=== PATIENT | female | born 1960 | race Caucasian/White ===

== ENCOUNTER 2023-04-27 12:22 | Emergency (ER) | payer BC, SELFPAY ==
[2023-04-27] VITALS (15 sets, daily range): BP systolic 133–174; BP diastolic 88–106; PULSE 73–108; RESP 12–21; O2SAT 95–98; BMI 34.5
--- NOTE | 2023-04-27 12:55 | XR_ITS ---
The [address] [address] Patient Name: JULIO CÉSAR GARCIA MRN: [id number] date: 1960 Sex: F Assigned Patient Location: ER Current Patient Location: ER Accession/Order Number: [id number] Exam Date: 04/27/2023 13:12 Report Date: 04/27/2023 14:41 At the request of: KASIE AHUJA Procedure: XR chest 1V FRONTAL CHEST; 04/27/2023 1:12 PM EST Clinical History:SOB Comparison: None available . AP portable upright film. Osseous structures are grossly intact. Cardiac and mediastinal silhouettes are unremarkable. The ann marie are symmetric. No infiltrate or effusion. No failure pattern. The lungs are well expanded. XR/XR chest 1V IMPRESSION: 1. No infiltrate, effusion, or failure. Electronically authenticated by: ERIC GREENFIELD Date: 04/27/2023 14:41
--- NOTE | 2023-04-27 12:55 | ECG_ITS ---
The [facility] Test Date: 2023-04-27 Pat Name: JULIO CÉSAR GARCIA Department: Room: - Gender: Female Vp Informatics: : 1960 Requested By: KLAUDIA KEBEDE Order Number: [id number] Reading MD: KAYLI OHARA Measurements Intervals [place] Rate: 95 P: 60 DC: 146 QRS: 39 QRSD: 66 T: 48 QT: 314 QTc: 367 Interpretive Statements 1100 Sinus rhythm 8102 Low QRS voltage in chest leads 0102 ARTIFACT PRESENT 9120 atypical ECG No previous ECG available for comparison Electronically Signed On 04-27-2023 19:36:12 EST by KAYLI OHARA
--- NOTE | 2023-04-27 12:55 | ED.SOB1 ---
HPI - SOB/Dyspnea General Chief Complaint: Shortness of Breath/Dyspnea Stated Complaint: Shortness Of Breath Chest Pain Time Seen by Provider: 04/27/23 12:32 Source: patient Mode of arrival: walk-in History of Present Illness HPI Narrative: 63-year-old female presents for shortness breath and chest pain. She's been having these symptoms for about four days. She saw her doctor four days ago but she didn't tell him. She has not had a cough. She hasn't used her inhaler. She hasn't had a fever or hemoptysis. The pain in her chest is been there continuously for about three days and it's in the center. Related Data Home Medications Medication Instructions Recorded Confirmed atogepant 60 mg tablet (Qulipta) 60 mg PO DAILY 04/27/23 04/27/23 fluoxetine 40 mg capsule 40 mg PO DAILY 04/27/23 04/27/23 lisdexamfetamine 30 mg capsule 30 mg PO DAILY 04/27/23 04/27/23 spironolactone 50 mg tablet 50 mg PO DAILY 04/27/23 04/27/23 topiramate 50 mg tablet 150 mg PO .qhs 04/27/23 04/27/23 Allergies Allergy/AdvReac Type Severity Reaction Status Date / Time No Known Drug Allergies Allergy Verified 04/27/23 12:26 Review of Systems ROS Narrative A ten point review of systems is negative except as noted above. PFSH PFSH Social History Smoking status: Former smoker Exam Narrative Exam Narrative: Nurses note and vital signs reviewed and patient is not hypoxic. General: The patient appears well and in no apparent distress. Patient is resting comfortably on cart. Skin: Warm, dry, no pallor noted. There is pallor or erythema. Head: Normocephalic, atraumatic Eye: Normal conjunctiva, no drainage Ears, Nose, Mouth, and Throat: oral mucosa is moist. Nares patent. Cardiovascular: Regular Rate and Rhythm Respiratory: Patient is in no distress, no accessory muscle use, lungs are clear to auscultation, no wheezing, rales or rhonchi Back: non-tender GI: soft and nontender Musculoskeletal: The patient has no evidence of calf tenderness, no pitting edema, symmetrical pulses noted bilaterally Neurological: A&O, normal speech Psychiatric: Cooperative, mildly anxious in appearance Constitutional Vital Signs, click to edit/add: Last Vital Signs Pulse 73 04/27/23 15:30 Resp 14 04/27/23 15:30 BP 150/90 H 04/27/23 15:30 Pulse Ox 98 04/27/23 15:30 Course Vital Signs Vital signs: Vital Signs Pulse Rate 108 H 04/27/23 12:27 Respiratory Rate 18 04/27/23 12:27 Blood Pressure 174/100 H 04/27/23 12:27 Pulse Oximetry 98 04/27/23 12:27 Pulse Rate 73 04/27/23 15:30 Respiratory Rate 14 04/27/23 15:30 Blood Pressure 150/90 H 04/27/23 15:30 Pulse Oximetry 98 04/27/23 15:30 MDM - SOB/Dyspnea MDM Narrative Medical decision making narrative: Workup including CT of the chest is negative other than some emphysematous changes. No evidence of PE or pneumothorax or pneumonia. No evidence of heart disease at this point. She'll be discharged home and will follow-up with her physician. Treatment diagnosis and follow-up were discussed with the patient. Differential Diagnosis Differential diagnosis: Likely acute exacerbation of chronic obstructive airways disease, congestive heart failure, community acquired pneumonia, pulmonary embolism and other (pneumothorax) Lab Data Attestation: I reviewed the patient's lab results. Labs: Lab Results 04/27/23 Range/Units 12:52 WBC 5.5 (4.0-11.0) 10^3/uL RBC 4.82 (4.20-5.40) 10^6/uL Hgb 13.7 (12.0-16.0) g/dL Hct 42.9 (36.0-48.0) % MCV 89.0 (81.0-99.0) fL MCH 28.4 (26.7-34.0) pg MCHC 31.9 (29.9-35.2) g/dL RDW 12.2 (11.0-15.0) % Plt Count 266 (150-450) 10^3/uL MPV 9.4 L (9.5-13.5) fL Neut % (Auto) 70.7 (43.0-75.0) % Lymph % (Auto) 20.4 L (20.5-60.0) % [place] % (Auto) 6.7 (1.7-12.0) % Eos % (Auto) 1.3 (0.9-7.0) % Baso % (Auto) 0.7 (0.2-2.0) % Neut # (Auto) 3.9 (1.4-6.5) 10^3/uL Lymph # (Auto) 1.1 L (1.2-3.8) 10^3/uL [place] # (Auto) 0.4 (0.3-0.8) 10^3/uL Eos # (Auto) 0.1 (0.0-0.7) 10^3/uL Baso # (Auto) 0.0 (0.0-0.1) 10^3/uL Abs Immat Gran (auto) 0.01 (0.00-0.03) 10^3/uL Imm/Tot Granulo (auto) 0.2 (0.0-0.5) % Sodium 138 (136-145) mmol/L Potassium 4.1 (3.5-5.1) mmol/L Chloride 105 (98-107) mmol/L Carbon Dioxide 25.5 (21.0-32.0) mmol/L Anion Gap 11.6 BUN 14.0 (7.0-18.0) mg/dL Creatinine 0.97 (0.55-1.02) mg/dL Est GFR ( Amer) >60 (>=60) Est GFR (Non-Af Amer) 58 L (>=60) BUN/Creatinine Ratio 14.4 Glucose 97 (74-106) mg/dL Calcium 9.0 (8.5-10.1) mg/dL Troponin I High Sens 9.2 (4.0-51.3) pg/mL Imaging Data chest x-ray and CT chest: Radiologist's impression: Procedure: CT angio chest EXAM: CT angio chest HISTORY: sob, r/o PE COMPARISON: None. TECHNIQUE: Thin section transaxial slices were acquired through the chest with intravenous contrast per PE protocol. Coronal and sagittal reconstructed images were reviewed. FINDINGS: PULMONARY ARTERIES: There is good opacification of the pulmonary vasculature. No pulmonary arterial filling defects are present. VASCULATURE: There is mild dilatation of ascending aorta. No atherosclerotic calcification. LUNGS/AIRWAYS: No areas of consolidation or mass are seen. There are upper lobe predominant mild centrilobular emphysematous changes. There are nonspecific mild groundglass opacities in bilateral lung bases, likely represent dependent atelectasis. Bronchial wall thickening are identified in the bilateral lower lobes with mild mosaic attenuation. The central airways are patent. PLEURAL CAVITY: No pleural effusion or pneumothorax. HEART/PERICARDIUM: The heart is normal in size. No pericardial effusion. MEDIASTINAL/HILAR LYMPH NODES: No pathologically enlarged lymph nodes. CHEST WALL/AXILLA/LOWER NECK: Normal. VISUALIZED UPPER ABDOMEN: Unremarkable BONES: No acute process.. Moderate degenerative changes of thoracic spine. IMPRESSION: 1. No evidence of pulmonary embolism. 2. No evidence of pneumonia. 3. Upper lobe predominant mild centrilobular emphysematous changes. Bibasilar dependent atelectasis. Mild bronchial wall thickening in bilateral lower lobes with mild mosaic attenuation, may represent of reactive or viral airway disease. 4. Mild dilatation of ascending aorta. Electronically authenticated by: CHON UNLU Date: 04/27/2023 15:49 Procedure: XR chest 1V FRONTAL CHEST; 04/27/2023 1:12 PM EST Clinical History:SOB Comparison: None available . AP portable upright film. Osseous structures are grossly intact. Cardiac and mediastinal silhouettes are unremarkable. The ann marie are symmetric. No infiltrate or effusion. No failure pattern. The lungs are well expanded. IMPRESSION: 1. No infiltrate, effusion, or failure. Electronically authenticated by: ERIC GREENFIELD Date: 04/27/2023 14:41 ECG Data Attestation: I personally reviewed and interpreted this ECG as follows: (EKG on my interpretation shows atrial fibrillation with a rate of 84.) Discharge Plan Discharge Chief Complaint: Shortness of Breath/Dyspnea Clinical Impression: Dyspnea Patient Disposition: Home, Self-Care Time of Disposition Decision: 16:43 Condition: Good Mode of Transportation: Private Vehicle Prescriptions / Home Meds: No Action Qulipta 60 mg tablet 60 mg PO DAILY lisdexamfetamine 30 mg capsule 30 mg PO DAILY fluoxetine 40 mg capsule 40 mg PO DAILY spironolactone 50 mg tablet 50 mg PO DAILY topiramate 50 mg tablet 150 mg PO .qhs Instructions: Dyspnea (ED) Stand Alone Forms: Portal Instructions Referrals: Physician,Non-Staff, MD [Physician] - 1 week
[2023-04-27 13:16] LABS: Basophils Percent Auto 0.7 % (0.2-2.0); Eosinophils Absolute Auto 0.1 10^3/uL (0.0-0.7); Eosinophils Percent Auto 1.3 % (0.9-7.0); Hematocrit 42.9 % (36.0-48.0); Hemoglobin 13.7 g/dL (12.0-16.0); Immature Granulocytes Abs Auto 0.01 10^3/uL (0.00-0.03); Immature Granulocytes Pct Auto 0.2 % (0.0-0.5); Lymphocytes Absolute Auto 1.1 10^3/uL (1.2-3.8); Lymphocytes Percent Auto 20.4 % (20.5-60.0); Mean Corpuscular HGB Conc 31.9 g/dL (29.9-35.2); Mean Corpuscular Hemoglobin 28.4 pg (26.7-34.0); Mean Platelet Volume 9.4 fL (9.5-13.5); Monocytes Absolute Auto 0.4 10^3/uL (0.3-0.8); Monocytes Percent Auto 6.7 % (1.7-12.0); Neutrophils Absolute Auto 3.9 10^3/uL (1.4-6.5); Neutrophils Percent Auto 70.7 % (43.0-75.0); Platelet Count 266 10^3/uL (150-450); Red Blood Count 4.82 10^6/uL (4.20-5.40); Red Cell Distribution Width 12.2 % (11.0-15.0); White Blood Count 5.5 10^3/uL (4.0-11.0)
[2023-04-27 13:33] LABS: Anion Gap 11.6; BUN Creatinine Ratio 14.4; Carbon Dioxide 25.5 mmol/L (21.0-32.0); Chloride 105 mmol/L (98-107); Estimated GFR (African America >60 (>=60); Estimated GFR (Non-African Ame 58 (>=60); Glucose 97 mg/dL (74-106); Potassium 4.1 mmol/L (3.5-5.1); Sodium 138 mmol/L (136-145); Troponin I High Sensitivity 9.2 pg/mL (4.0-51.3)
--- NOTE | 2023-04-27 14:02 | CT_ITS ---
The [address] [address] Patient Name: JULIO CÉSAR GARCIA MRN: [id number] date: 1960 Sex: F Assigned Patient Location: ER Current Patient Location: ER Accession/Order Number: [id number] Exam Date: 04/27/2023 14:37 Report Date: 04/27/2023 15:49 At the request of: KASIE AHUJA Procedure: CT angio chest EXAM: CT angio chest HISTORY: sob, r/o PE COMPARISON: None. TECHNIQUE: Thin section transaxial slices were acquired through the chest with intravenous contrast per PE protocol. Coronal and sagittal reconstructed images were reviewed. FINDINGS: PULMONARY ARTERIES: There is good opacification of the pulmonary vasculature. No pulmonary arterial filling defects are present. VASCULATURE: There is mild dilatation of ascending aorta. No atherosclerotic calcification. LUNGS/AIRWAYS: No areas of consolidation or mass are seen. There are upper lobe predominant mild centrilobular emphysematous changes. There are nonspecific mild groundglass opacities in bilateral lung bases, likely represent dependent atelectasis. Bronchial wall thickening are identified in the bilateral lower lobes with mild mosaic attenuation. The central airways are patent. PLEURAL CAVITY: No pleural effusion or pneumothorax. HEART/PERICARDIUM: The heart is normal in size. No pericardial effusion. MEDIASTINAL/HILAR LYMPH NODES: No pathologically enlarged lymph nodes. CHEST WALL/AXILLA/LOWER NECK: Normal. VISUALIZED UPPER ABDOMEN: Unremarkable BONES: No acute process.. Moderate degenerative changes of thoracic spine. CT/CT angio chest IMPRESSION: 1. No evidence of pulmonary embolism. 2. No evidence of pneumonia. 3. Upper lobe predominant mild centrilobular emphysematous changes. Bibasilar dependent atelectasis. Mild bronchial wall thickening in bilateral lower lobes with mild mosaic attenuation, may represent of reactive or viral airway disease. 4. Mild dilatation of ascending aorta. Electronically authenticated by: CHON PRESLEYU Date: 04/27/2023 15:49
== END 2023-04-27 16:55 | disposition home or self-care (01) ==
PROVIDERS: Emergency Provider Emergency Medicine; PCP Internal Medicine
DX: R06.00 Dyspnea, unspecified (principal); Z79.899 Other long term (current) drug therapy
CPT/HCPCS: 36415; 71045; 71275; 80048; 84484; 85025; 93005; 99285; Q9967

== ENCOUNTER 2023-05-16 08:30 | Outpatient (OUT) | payer BC, SELFPAY ==
--- NOTE | 2023-05-16 08:33 | CT_ITS ---
[address] [address] Patient Name: JULIO CÉSAR GARCIA MRN: [id number] date: 1960 Sex: F Assigned Patient Location: CT Current Patient Location: Accession/Order Number: [id number] Exam Date: 05/16/2023 08:38 Report Date: 05/18/2023 08:18 At the request of: KLAUDIA KEBEDE Procedure: CT lung screening low-dose EXAM TYPE: CT lung screening low-dose INDICATION: Former smoker COMPARISON: LD CT scan of the chest 11/24/2021, CT angiography of the chest 04/27/2023 TECHNIQUE: Noncontrast, Low dose, helical axial images of the chest were obtained, and thin section, axial MIP, and coronal and sagittal reformats were also submitted from the acquisition scanner under radiologist supervision. Each series was submitted in a lung algorithm. Dose reduction techniques were achieved by using automated exposure control and/or adjustment of mA and/or kV according to patient size and/or use of iterative reconstruction technique. FINDINGS: Please note that this examination was tailored for evaluation of pulmonary nodules, and therefore soft tissue detail is suboptimal. Heart size within normal limits. No pericardial effusion. Stable ectasia ascending thoracic aorta 3.7 cm in diameter. No central endobronchial nodule. No mediastinal or axillary lymphadenopathy. Diffuse centrilobular emphysematous change and bronchial wall thickening. No focal consolidation or pleural effusion. No pneumothorax. Mosaic attenuation with faint dependent groundglass opacity throughout the lung parenchyma. No suspicious pulmonary nodules. Upper abdomen grossly unremarkable. No acute fracture. Multilevel degenerative disc disease. IMPRESSION : 1. Lung RADS category 1: Negative. Continued annual LD CT scan of the chest recommended. 2. Chronic changes of COPD with findings of reactive airway disease. Electronically authenticated by: IFEOMA LIN Date: 05/18/2023 08:18
== END 2023-05-16 08:31 | disposition home or self-care (01) ==
LOC: CT 08:30
PROVIDERS: PCP Internal Medicine; Visit Provider Internal Medicine
DX: J44.9 Chronic obstructive pulmonary disease, unspecified (principal); Z87.891 Personal history of nicotine dependence
CPT/HCPCS: 71271